=== PATIENT | female | born 1960 | race Caucasian/White ===

== ENCOUNTER → 2018-08-04 | Outpatient (CLI) | payer OTHER, MEDICAID ==
[~2018-08-04] MED LIST: AMIT25TA9 PO; ASPI-378 PO; ATO40T PO; CARV6.2551 PO; CLOP75TA41 PO; DOCU100T15 PO; FURO20TA3 PO; HYDR-3682 PO; LISI-275 PO; METR500T PO; ONDA-143 PO; PANT40TA2 PO; SPIR25TA8 PO
== END | disposition home or self-care (01) ==
LOC: Rad HDHVI 12:40
PROVIDERS: ATTEND Internal Medicine Cardiovascular Disease
DX: I35.1 Nonrheumatic aortic (valve) insufficiency (principal); I65.21 Occlusion and stenosis of right carotid artery; I20.9 Angina pectoris, unspecified; J44.9 Chronic obstructive pulmonary disease, unspecified
CPT/HCPCS: 93306; 93880

== ENCOUNTER → 2018-08-10 | Outpatient (CLI) | payer OTHER, MEDICAID ==
[~2018-08-10] VITALS: Ht 162.6 cm; Wt 83.0 kg
[~2018-08-10] MED LIST changes: +ADENOSINE 70 MG in GIVE UN-DILUTED 0 ML IV ONE; +ADENOSINE 90 MG/30 ML INJ IV ONE; +ALBUTEROL SULF 2.5 MG/0.5ML(0.5%) NEB SOLN ONE
--- NOTE | 2018-08-10 11:15 | NUR ---
Albuterol med/neb tx given for wheezing throughout. Pt tolerated well, 99% on 4L O2.
== END | disposition home or self-care (01) ==
LOC: Rad HDHVI 09:34
PROVIDERS: ATTEND Internal Medicine Cardiovascular Disease
DX: I20.9 Angina pectoris, unspecified (principal); J44.9 Chronic obstructive pulmonary disease, unspecified; I48.1 Persistent atrial fibrillation; I49.5 Sick sinus syndrome; I11.0 Hypertensive heart disease with heart failure; I50.9 Heart failure, unspecified
CPT/HCPCS: 78452; 93005; 96374; 96375; A9500; J0153; J7611

== ENCOUNTER → 2018-09-20 | Outpatient (CLI) | payer OTHER, MEDICAID ==
[~2018-09-20] MED LIST changes: -ADENOSINE 70 MG in GIVE UN-DILUTED 0 ML IV ONE; -ADENOSINE 90 MG/30 ML INJ IV ONE; -ALBUTEROL SULF 2.5 MG/0.5ML(0.5%) NEB SOLN ONE; +OXYC15TA77 PO
[2018-09-20 10:15] VITALS: BP 170/79
--- NOTE | 2018-09-20 10:15 | NUR ---
CHF-PRE OP PT ARRIVED IN OUTPATIENT CHF CLINIC, FOR PRE OP PROCEDURE LEFT HEART CATH PT HAS PORTABLE OXYGEN TANK 3 L NC PRE SET OF VITAL SIGNS TAKE, FOLLOWED BY ECG PATIENT HOME MEDICATIONS REVIEWED COPY OF ECG GIVEN TO PT PATIENT FAMILY MEMBER AT HER SIDE AT ALL TIMES.
--- NOTE | 2018-09-20 10:15 | NUR ---
Discharge Instructions See e-MAR for any mediations given with this visit. Patient education given on disease process. Patient verbalized understanding. Previous labs reviewed. Patient discharged in stable condition with after care instructions and follow up appointment. Addendum: 09/20/18 at 1047 by Yomaira Chairez RN DISCHARGE TIME AT 1033
[2018-09-20 10:33] VITALS: BP 143/78
[2018-09-20 12:15] LABS: Basophils # (auto) 0 uL; Basophils % (auto) 0.2 % (0.0-2.0); Eosinophils # (auto) 0.1 uL; Eosinophils % (auto) 0.8 % (0.0-7.0); Hematocrit 45.3 % (36.0-46.0); Hemoglobin 14.8 g/dL (12.2-16.2); Lymphocytes # (auto) 1.2 uL; Lymphocytes % (auto) 16.3 % (10.0-50.0); Mean Corpuscular Hemoglobin 29.3 pg (28.0-32.0); Mean Corpuscular Hgb Conc. 32.6 g/dL (32.0-36.0); Mean Corpuscular Volume 89.8 fL (80.0-100.0); Monocytes # (auto) 0.5 uL; Monocytes % (auto) 6.7 % (0.0-12.0); Neutrophils # (auto) 5.5 uL; Nucleated Red Blood Cells % 0.1 %; Platelet Count (auto) 165 10^3/uL (140-450); Red Blood Cells 5.04 10^6/uL (4.0-5.20); Red Cell Distribution Width 14.1 % (11.8-14.3); White Blood Cell 7.2 10^3/uL (4.4-10.8)
[2018-09-20 12:25] LABS: INR 0.91 (0.9-1.15); Partial Thromboplastin Time 27.4 sec (23.78-33.04); Prothrombin Time 9.8 sec (9.27-12.13)
[2018-09-20 12:28] LABS: BUN/Creatinine Ratio 17.1; Calcium 8.5 mg/dL (8.5-10.1); Potassium 3.9 mmol/L (3.5-5.1)
== END | disposition home or self-care (01) ==
LOC: Rad HDHVI 09:57
PROVIDERS: ATTEND Internal Medicine Cardiovascular Disease
DX: Z01.812 Encounter for preprocedural laboratory examination (principal); I70.0 Atherosclerosis of aorta; I11.0 Hypertensive heart disease with heart failure; I50.9 Heart failure, unspecified; D64.9 Anemia, unspecified; R79.1 Abnormal coagulation profile; I20.9 Angina pectoris, unspecified
CPT/HCPCS: 36415; 71046; 80048; 85025; 85610; 85730; G0463

== ENCOUNTER 2018-09-23 07:05 | Day surgery (SDC) | payer OTHER, MEDICAID ==
[~2018-09-23] VITALS: Ht 162.6 cm; Wt 86.2 kg
[~2018-09-23 07:05] MED LIST changes: -METR500T PO
[2018-09-23] MEDS ORDERED: IOHEXOL 350 MG/ML 100ML IJ ONE ×2 (07:29→08:41)
[2018-09-23] MEDS ORDERED: LIDOCAINE 2%HCL (LOCAL ANESTH.) INJ 20ML MDV ONE ×3 (07:29→09:16)
[2018-09-23] MEDS ORDERED: ANGIOMAX 250 MG VIAL IV ONE (08:37)
[2018-09-23] MEDS ORDERED: MIDAZOLAM HCL 1MG/1ML-2 ML VIAL ONE ×2 (08:38→09:21)
[2018-09-23] MEDS ORDERED: SODIUM CHL 0.9% 0 ML ONE (08:38)
[2018-09-23] MEDS ORDERED: fentaNYL CITRATE 100 MCG/2 ML VL ONE (08:38)
[2018-09-23] MEDS ORDERED: diphenhdrAMINE HCL 50 MG/1 ML VL ONE (09:14)
[2018-09-23] MEDS ORDERED: HYDROmorphone HCL 2 MG/ML VL ONE (09:21)
[2018-09-23] MEDS ORDERED: VERAPAMIL 2.5MG/ML INJ 2ML VIAL IV ONE (09:28)
[2018-09-23] MEDS ORDERED: HEPARIN SODIUM (PORCINE) 5000 UNITS/ML 1ML VIAL ONE (10:35)
== END 2018-09-23 12:45 | disposition home or self-care (01) ==
LOC: CATH 07:05
PROVIDERS: ATTEND Internal Medicine Cardiovascular Disease
DX: I25.10 Atherosclerotic heart disease of native coronary artery without angina pectoris (principal); J44.9 Chronic obstructive pulmonary disease, unspecified; I11.0 Hypertensive heart disease with heart failure; I50.9 Heart failure, unspecified; I62.9 Nontraumatic intracranial hemorrhage, unspecified; I73.89 Other specified peripheral vascular diseases; Z88.8 Allergy status to other drugs, medicaments and biological substances; Z88.1 Allergy status to other antibiotic agents; Z88.5 Allergy status to narcotic agent; Z96.89 Presence of other specified functional implants; Z79.82 Long term (current) use of aspirin; Z79.899 Other long term (current) drug therapy
CPT/HCPCS: 93454; A6257; C1769; C1887; C1894; J1170; J1200; J1644; J2250; J3010; J7030; Q9967; 99152; 99153

== ENCOUNTER 2019-01-26 18:22 | Inpatient (IN) | payer OTHER, MEDICAID ==
[~2019-01-26] VITALS: Ht 162.6 cm; Wt 80.1 kg
[~2019-01-26 18:22] MED LIST changes: +AMLO5TAB15 PO; -CARV6.2551 PO; +DICY10CA12 PO; -HYDR-3682 PO; +PITA4TAB PO
[2019-01-26 19:51] LABS: Albumin 3.7 g/dL (3.4-5.0); Anion Gap 6 (5-15); Blood Urea Nitrogen 16 mg/dL (7-18); Calcium 8.7 mg/dL (8.5-10.1); Carbon Dioxide 24 mmol/L (21-32); Chloride 108 mmol/L (98-107); Glucose 112 mg/dL (74-106); Magnesium 2.3 mg/dL (1.6-2.6); Potassium 3.4 mmol/L (3.5-5.1); Sodium 138 mmol/L (136-145)
[2019-01-26 19:53] LABS: Basophils # (auto) 0 uL; Basophils % (auto) 0.1 % (0.0-2.0); Eosinophils # (auto) 0.1 uL; Eosinophils % (auto) 1.1 % (0.0-7.0); Hematocrit 45.3 % (36.0-46.0); Hemoglobin 13.8 g/dL (12.2-16.2); Lymphocytes # (auto) 1.8 uL; Lymphocytes % (auto) 21.1 % (10.0-50.0); Mean Corpuscular Hemoglobin 28.6 pg (28.0-32.0); Mean Corpuscular Hgb Conc. 30.4 g/dL (32.0-36.0); Monocytes # (auto) 0.6 uL; Neutrophils % (auto) 70.7 % (37.0-80.0); Nucleated Red Blood Cells % 0.1 %; Platelet Count (auto) 167 10^3/uL (140-450); Red Blood Cells 4.82 10^6/uL (4.0-5.20); Red Cell Distribution Width 16.6 % (11.8-14.3); White Blood Cell 8.6 10^3/uL (4.4-10.8)
[2019-01-26 19:54] LABS: Alanine Aminotransferase 27 U/L (13-56); Alkaline Phosphatase 133 U/L (45-117); Aspartate Aminotransferase 24 U/L (15-37); BUN/Creatinine Ratio 17.2; Bilirubin, Total 0.7 mg/dL (0.2-1.0); GFR African American 80 mL/min; GFR Non-African American 66 mL/min
[2019-01-27] MEDS ORDERED: ONDANSETRON HCL 4 MG/2 ML VIAL IV ONE (03:30)
[2019-01-27] MEDS ORDERED: HYDROmorphone HCL 2 MG/ML VL IV ONE (03:30)
[2019-01-27] MEDS ORDERED: PROMETHAZINE HCL 25 MG/ML 1ML ONE (04:14)
[2019-01-27] MEDS ORDERED: PROMETHAZINE HCL 25 MG/ML 1ML IV ONE (04:30)
[2019-01-27] MEDS ORDERED: NITROGLYCERIN 0.4 MG SL TAB SL PRN (06:15)
[2019-01-27] MEDS ORDERED: MORPHINE SULF INJ 2 MG/ML SYRINGE 1ML IV PRN (06:15)
[2019-01-27] MEDS ORDERED: LABETALOL HCL 5 MG/ML ML 20ML VIAL IV PRN (06:15)
[2019-01-27] MEDS ORDERED: POTASSIUM CHLORIDE 20 MEQ, LIDOCAINE 1% (LOCAL ANESTH.) 2 ML in SODIUM CHL 0.9% 100 ML IV ONE (07:45)
[2019-01-27] MEDS ORDERED: FUROSEMIDE 20 MG/2 ML VIAL IV ONE (07:45)
[2019-01-27] MEDS: PROMETHAZINE HCL 25 MG/ML 1ML IV PRN ×4 (08:07→20:28)
[2019-01-27] MEDS: HYDROmorphone HCL 2 MG/ML VL IV PRN ×4 (08:07→20:28)
--- NOTE | 2019-01-27 10:10 | NUR ---
Telemetry admit from ER [facility] admitted to Telemetry unit after SBAR received. Patient oriented to Anna Koo, RN primary RN, unit, room, bed, and unit policies regarding patient care and visiting hours. Patient now on continuous telemetry monitoring, tele box # HC 31 and telemetry reading on arrival to unit is SR 82. Patient placed on bedside oxygen, weighed by bedscale and encouraged to call if they need something. All questions and concerns addressed, patient verbalized understanding. Note:
--- NOTE | 2019-01-27 10:20 | NUR ---
Patient has a sling to her left arm. She states she fell one week ago and damaged her shoulder.
--- NOTE | 2019-01-27 10:25 | NUR ---
Patient states she is too nauseated to take any medications at this time. Will continue to monitor.
[2019-01-27 10:28] VITALS: BP 137/77
[2019-01-27] MEDS: LISINOPRIL 5 MG TAB PO SCH (10:30)
[2019-01-27] MEDS: amLODIPine BESYLATE 5 MG TAB PO SCH (10:30)
[2019-01-27] MEDS: PANTOPRAZOLE 40 MG TAB PO SCH (10:30)
[2019-01-27] MEDS: CLOPIDOGREL BISULFATE 75 MG TAB PO SCH (10:30)
[2019-01-27] MEDS: SPIRONOLACTONE 25 MG TAB PO SCH (10:30)
[2019-01-27] MEDS: ASPirin-EC 81 mg tab PO SCH (10:30)
[2019-01-27] MEDS: METOPROLOL TARTRATE 50 MG TAB PO SCH ×2 (10:30→22:00)
[2019-01-27 10:33] LABS: Urine Bacteria FEW /hpf (None Seen); Urine Blood 1+ /uL (Negative); Urine Mucus FEW (None Seen); Urine WBC 3 /hpf (0 - 5)
[2019-01-27 13:00] VITALS: BP 127/83
[2019-01-27 17:00] VITALS: BP 130/81
[2019-01-27] MEDS: AMITRIPTYLINE HCL 25 MG TAB PO SCH (18:00)
--- NOTE | 2019-01-27 18:49 | NUR ---
Received call from Dr. Rivera stating she is looking for the CT abdomen results. This RN informed her that she saw the patient this AM and said she would review what tests the patient has had and put in new orders. CT abdomen ordered STAT and CT informed. STAT orders put in for urine and blood cultures.
[2019-01-27] MEDS ORDERED: ONDANSETRON HCL 4 MG/2 ML VIAL IV PRN (19:00)
--- NOTE | 2019-01-27 19:24 | NUR ---
CT abdomen completed, patient back to room.
--- NOTE | 2019-01-27 19:30 | NUR ---
Opening Shift Note Assumed care of patient, awake and alert x4. Family members noted at the bedside. Patient complains of sharp pain to lower abdomen (pain scale 9/10), will medicate patient as MD ordered. No S/S of distress/SOB noted. Instructed on plan of care and to call for assistance as needed, patient verbalized understanding. Bed is locked in lowest position, side rails x 2 are up, call light is within reach, and bed alarm is on.
[2019-01-27 19:50] LABS: Basophils # (auto) 0 uL; Basophils % (auto) 0.3 % (0.0-2.0); Eosinophils # (auto) 0.1 uL; Eosinophils % (auto) 1.8 % (0.0-7.0); Hematocrit 38.8 % (36.0-46.0); Hemoglobin 12.4 g/dL (12.2-16.2); Lymphocytes # (auto) 1.4 uL; Lymphocytes % (auto) 25.2 % (10.0-50.0); Mean Corpuscular Hemoglobin 28.4 pg (28.0-32.0); Mean Corpuscular Hgb Conc. 31.8 g/dL (32.0-36.0); Mean Corpuscular Volume 89.2 fL (80.0-100.0); Monocytes # (auto) 0.4 uL; Monocytes % (auto) 7.2 % (0.0-12.0); Neutrophils # (auto) 3.7 uL; Neutrophils % (auto) 65.5 % (37.0-80.0); Platelet Count (auto) 139 10^3/uL (140-450); Red Blood Cells 4.35 10^6/uL (4.0-5.20); Red Cell Distribution Width 16.3 % (11.8-14.3); White Blood Cell 5.6 10^3/uL (4.4-10.8)
[2019-01-27 20:12] LABS: Albumin 3.1 g/dL (3.4-5.0); Calcium 8.1 mg/dL (8.5-10.1); Potassium 3.4 mmol/L (3.5-5.1)
[2019-01-27 20:16] LABS: Bilirubin, Total 0.7 mg/dL (0.2-1.0); Total Protein 7.6 g/dL (6.4-8.2)
[2019-01-27 21:42] VITALS: BP 142/89
[2019-01-27] MEDS ORDERED: D5W/SOD CHL 0.9%/KCL 40MEQ 1,000 ML IV SCH (22:00)
[2019-01-27] MEDS: ATORVASTATIN 20 MG TAB PO SCH (22:00)
[2019-01-27] MEDS: POTASSIUM CHLORIDE 40 MEQ in D5W 5% 1,000 ML IV SCH (23:25)
[2019-01-28] MEDS: HYDROmorphone HCL 2 MG/ML VL IV PRN ×6 (01:49→22:40)
[2019-01-28] MEDS: PROMETHAZINE HCL 25 MG/ML 1ML IV PRN ×5 (01:49→21:50)
--- NOTE | 2019-01-28 01:57 | NUR ---
HOSPITALIST PAGED RE: CT ABDOMEN RESULTS Hospitalist paged regarding CT abdomen results. Awaiting call back.
--- NOTE | 2019-01-28 02:41 | NUR ---
PATIENT COMPLAINING OF DIFFICULTY URINATING Patient states she has an urge to urinate but is unable to urinate. Patient found to have distended bladder upon palpation. Bladder scan showed reading of 125ml of urine retention. Patient is also complaining of lower abdominal pain. Will inform Hospitalist.
--- NOTE | 2019-01-28 04:07 | NUR ---
HOSPITALIST PAGED RE: ABDOMEN CT RESULTS AND URINE OUTPUT Hospitalist paged regarding abdomen CT results and urine output. Awaiting call back.
[2019-01-28 04:59] VITALS: BP 135/73
--- NOTE | 2019-01-28 05:11 | NUR ---
HOSPITALIST RETURNED CALL Made Cynthia Ballesteros aware of patients CT abdomen results. Cynthia Ballesteros was also made aware of patient complaining of having urge to void but unable to urinate, bladder feeling distended upon palpitation, and bladder scan showing reading of 125ml of urine retention. Orders for Negrete catheter received. Order read back and verified. Will carry out order as received.
--- NOTE | 2019-01-28 06:00 | NUR ---
Hernandez catheter insertion Patient assessed and determined to be in need of hernandez catheter. Order obtained from Cynthia Ballesteros for hernandez catheter insertion. Patient educated on catheter and reason for insertion. All questions answered. Hernandez catheter 16 guage [place] inserted with clean sterile technique. Patient tolerated well.
--- NOTE | 2019-01-28 06:30 | NUR ---
URINE COLLECTED URINE COLLECTED AND SENT TO LAB.
--- NOTE | 2019-01-28 06:50 | NUR ---
PATIENT REFUSING IV INSERTION Patient called stating that her IV site was hurting/burning. Redness was noted around IV site. Patient refusing to have IV started. Patient states she always gets PICC lines due to her being a hard stick.
--- NOTE | 2019-01-28 08:00 | NUR ---
Opening Shift Note Assumed care of patient, resting with eyes closed. No S/S of distress/SOB. Instructed on POC and to call for assist PRN, will continue to monitor for changes Q1hr and PRN.
[2019-01-28 08:02] LABS: Basophils # (auto) 0 uL; Basophils % (auto) 0.6 % (0.0-2.0); Eosinophils # (auto) 0.1 uL; Eosinophils % (auto) 2.5 % (0.0-7.0); Hematocrit 38.6 % (36.0-46.0); Hemoglobin 12.3 g/dL (12.2-16.2); Lymphocytes # (auto) 1.2 uL; Lymphocytes % (auto) 26.1 % (10.0-50.0); Mean Corpuscular Hemoglobin 28.3 pg (28.0-32.0); Mean Corpuscular Hgb Conc. 31.9 g/dL (32.0-36.0); Mean Corpuscular Volume 88.8 fL (80.0-100.0); Monocytes # (auto) 0.4 uL; Monocytes % (auto) 7.8 % (0.0-12.0); Neutrophils # (auto) 2.9 uL; Nucleated Red Blood Cells % 0.1 %; Platelet Count (auto) 124 10^3/uL (140-450); Red Blood Cells 4.35 10^6/uL (4.0-5.20); White Blood Cell 4.7 10^3/uL (4.4-10.8)
[2019-01-28 08:20] LABS: Calcium 8.4 mg/dL (8.5-10.1); Potassium 3.4 mmol/L (3.5-5.1)
[2019-01-28 09:09] VITALS: BP 119/70
[2019-01-28] MEDS: ASPirin-EC 81 mg tab PO SCH ×2 (10:00→10:33)
[2019-01-28] MEDS: SPIRONOLACTONE 25 MG TAB PO SCH ×2 (10:00→10:33)
[2019-01-28] MEDS: amLODIPine BESYLATE 5 MG TAB PO SCH ×2 (10:00→10:34)
[2019-01-28] MEDS: LISINOPRIL 5 MG TAB PO SCH ×2 (10:00→10:34)
[2019-01-28] MEDS: CLOPIDOGREL BISULFATE 75 MG TAB PO SCH ×2 (10:00→10:34)
[2019-01-28] MEDS: METOPROLOL TARTRATE 50 MG TAB PO SCH ×2 (10:33→22:00)
[2019-01-28] MEDS: PANTOPRAZOLE 40 MG TAB PO SCH ×2 (10:34→22:00)
--- NOTE | 2019-01-28 11:00 | NUR ---
REFUSED ORAL MEDICATIONS PATIENT REFUSED AM MEDICATIONS DUE TO FEELING NAUCEOUS. PRN MEDICATION WAS GIVEN IV. WENT BACK TO SEE IF PATIENT WOULD TAKE THE MEDICATIONS AND SHE AGAIN REFUSED ALL PO MEDICATIONS.
--- NOTE | 2019-01-28 11:21 | NUR ---
Midline Placement: Patient educated on need for midline placement. All risks and benefits explained and all questions and concerns addresses prior to procedure. 3Fr 20cm midline inserted via right brachial vein using Ultrasound. Sterile technique utilized. Blood return obtained from the single lumen and flushed easily with NS using proper technique. Midline secured with saline lock; biodisc and occlusive dressing applied. Primary RN notified. Midline lot #[id number].
[2019-01-28] MEDS: POTASSIUM CHLORIDE 40 MEQ in D5W 5% 1,000 ML IV SCH (11:54)
[2019-01-28 13:00] VITALS: BP 115/68
[2019-01-28] MEDS: CEFEPIME 2 GM in SODIUM CHL 0.9% 50 ML IV SCH ×2 (13:27→21:49)
--- NOTE | 2019-01-28 15:15 | NUR ---
EMESIS PATIENT VOMITING A GREENISH FROTHY FLUID. SHE REMAINS NPO. SHE IS COMPLAINING OF ABDOMINAL PAIN AND NAUSEA. SHE WAS GIVEN DILAUDID AND PHENERGAN ORDERED. IS AWARE.
[2019-01-28 17:00] VITALS: BP 121/78
[2019-01-28] MEDS: AMITRIPTYLINE HCL 25 MG TAB PO SCH (18:00)
--- NOTE | 2019-01-28 19:30 | NUR ---
Opening Shift Note Assumed care of patient, patient is laying in bed with eyes closed, symmetrical chest rise and fall noted. No S/S of distress/SOB noted. Bed is locked in lowest position, side rails x 2 are up, call light is within reach, and bed alarm is on.
[2019-01-28 21:38] VITALS: BP 139/81
[2019-01-28] MEDS: ATORVASTATIN 20 MG TAB PO SCH (22:00)
--- NOTE | 2019-01-28 23:40 | NUR ---
SPOKE WITH DR. BEAUCHAMP RE: PAIN/NAUSEA MEDICATIONS Informed Dr. Romero that patient is still complaining of sharp lower abdominal pain (pain scale 10/10) and is still dry heaving. Dr. Romero was made aware that patient states the pain/nausea medications are not working. Per Dr. Romero he will take a look at the medical record and adjust patients pain/nausea medications.
[2019-01-28] MEDS ORDERED: METOCLOPRAMIDE HCL 5MG/ml INJ 2ml VIAL IV PRN (23:45)
--- NOTE | 2019-01-28 23:54 | NUR ---
DR. BEAUCHAMP PAGED RE: NAUSEA MEDICATION Dr. Beauchamp paged regarding nausea medication. Awaiting call back.
--- NOTE | 2019-01-28 23:56 | NUR ---
DR. BEAUCHAMP RETURNED CALL Informed Dr. Beauchamp that patient states she cannot take Reglan for nausea because Reglan makes her anxious. Orders to discontinue Reglan and resume promethazine 12.5mg every four hours as needed for nausea received. Order read back and verified. Will carry out orders as received.
[2019-01-29] MEDS: PROMETHAZINE HCL 25 MG/ML 1ML IV PRN ×6 (01:14→22:40)
[2019-01-29] MEDS: HYDROmorphone HCL 2 MG/ML VL IV PRN ×6 (01:15→22:41)
[2019-01-29 01:20] VITALS: BP 155/81
--- NOTE | 2019-01-29 01:20 | NUR ---
EMESIS Patient vomited approximately 100ml of green bile. Patient has been medicated for nausea.
[2019-01-29] MEDS: PANTOPRAZOLE 40 MG TAB PO SCH ×3 (01:23→21:24)
--- NOTE | 2019-01-29 04:20 | NUR ---
SPOKE WITH DR. HERNANDEZ RE: HEART BURN Informed Dr. Hernandez that patient is complaining of heart burn. Orders received for Pepcid 20mg IV BID. Order repeated and verified. Will carry out order as received.
[2019-01-29 05:19] VITALS: BP 132/78
[2019-01-29 06:05] LABS: Basophils # (auto) 0 uL; Basophils % (auto) 0.5 % (0.0-2.0); Eosinophils # (auto) 0.1 uL; Eosinophils % (auto) 1.8 % (0.0-7.0); Hematocrit 38.3 % (36.0-46.0); Hemoglobin 12.5 g/dL (12.2-16.2); Lymphocytes # (auto) 1.3 uL; Lymphocytes % (auto) 26.2 % (10.0-50.0); Mean Corpuscular Hemoglobin 28.5 pg (28.0-32.0); Mean Corpuscular Hgb Conc. 32.7 g/dL (32.0-36.0); Mean Corpuscular Volume 87.2 fL (80.0-100.0); Monocytes # (auto) 0.4 uL; Monocytes % (auto) 6.8 % (0.0-12.0); Neutrophils # (auto) 3.3 uL; Neutrophils % (auto) 64.7 % (37.0-80.0); Nucleated Red Blood Cells % 0.5 %; Platelet Count (auto) 144 10^3/uL (140-450); Red Blood Cells 4.39 10^6/uL (4.0-5.20); Red Cell Distribution Width 15.9 % (11.8-14.3); White Blood Cell 5.1 10^3/uL (4.4-10.8)
[2019-01-29 06:28] LABS: BUN/Creatinine Ratio 21.1; Calcium 8.4 mg/dL (8.5-10.1); Potassium 3.6 mmol/L (3.5-5.1)
[2019-01-29] MEDS: POTASSIUM CHLORIDE 40 MEQ in D5W 5% 1,000 ML IV SCH ×2 (07:03→15:06)
--- NOTE | 2019-01-29 07:26 | NUR ---
CLOSING SHIFT NOTE Endorsed patient care to Divine NIÑO.
--- NOTE | 2019-01-29 08:00 | NUR ---
Opening Shift Note Assumed care of patient, resting with eyes closed, wakes easily to sound/touch. No S/S of distress/SOB. Continues to have abdominal pain and reported episodes of vomiting during the night. Instructed on POC and to call for assist PRN, will continue to monitor for changes Q1hr and PRN.
[2019-01-29 08:49] VITALS: BP 123/78
[2019-01-29] MEDS: CEFEPIME 2 GM in SODIUM CHL 0.9% 50 ML IV SCH ×2 (09:43→21:26)
[2019-01-29] MEDS: CLOPIDOGREL BISULFATE 75 MG TAB PO SCH (10:00)
[2019-01-29] MEDS: SPIRONOLACTONE 25 MG TAB PO SCH (10:00)
[2019-01-29] MEDS: METOPROLOL TARTRATE 50 MG TAB PO SCH ×2 (10:00→21:25)
[2019-01-29] MEDS: amLODIPine BESYLATE 5 MG TAB PO SCH (10:00)
[2019-01-29] MEDS: LISINOPRIL 5 MG TAB PO SCH (10:00)
[2019-01-29] MEDS: ASPirin-EC 81 mg tab PO SCH (10:00)
[2019-01-29] MEDS: FAMOTIDINE (10MG/ML) 2ML VL IV SCH ×2 (10:10→21:34)
[2019-01-29] MEDS: SUCRALFATE 1 GM/10 ML ORAL SUSP PO SCH ×4 (12:20→21:24)
[2019-01-29 13:00] VITALS: BP 107/71
[2019-01-29] MEDS ORDERED: GASTROGRAFIN 30 ML SOL ONE (13:02)
--- NOTE | 2019-01-29 15:00 | NUR ---
DRINKING CONTRAST PATIENT SIPPING ON ORAL CONTRAST TO PREPARE FOR ABD/PELVIS CT. SHE STATED THAT THE MEDICATION THAT WAS GIVEN EARLIER (SUCRALFATE AND PROTONIX) HELPED HER TO FEEL A LITTLE BETTER AND THE PAIN MEDICATION "TAKES THE EDGE OFF". SHE REPORTED TO THE DOCTOR THAT SHE PREVIOUSLY HAD PAIN IN HER LOWER RIGHT GROIN/ABD AREA, WHERE THEY FOUND BLOOD CLOTS, BUT THAT THIS PAIN WAS WORSE. PATIENT HAD AN EPISODE OF HEAVING EARLIER. MD ORDERED AN NG TUBE TO BE PLACED. WILL PLACE THIS AFTER CT IS DONE DUE TO PATIENT DRINKING ORAL CONTRAST AT THIS TIME.
[2019-01-29] MEDS ORDERED: IOHEXOL 300 MG/ML 100ML BOTTLE IJ ONE (15:41)
--- NOTE | 2019-01-29 16:31 | NUR ---
REFUSING NG TUBE PATIENT RETURNED FROM CT AND CXR. SHE IS REFUSING THE NG TUBE. THIS NURSE EXPLAINED TO HER THAT IT WOULD HELP WITH THE GAS, INDIGESTION, AND VOMITING BILE. SHE STATED THAT SHE HAS NOT BEEN HEAVING SINCE SHE RECEIVED THE SUCRALFATE AND PROTONIX AND THAT SHE DID NOT WANT THE NG TUBE. SHE STATED THAT IT MIGHT MAKE HER GAG AND START VOMITING AGAIN. LEFT SUPPLIES IN PATIENT'S ROOM IN CASE SHE CHANGES HER MIND. SHE SAID IT SHE STARTED VOMITING AGAIN SHE WOULD NOTIFY THE NURSE.
[2019-01-29 17:00] VITALS: BP 130/71
[2019-01-29] MEDS: AMITRIPTYLINE HCL 25 MG TAB PO SCH (18:00)
[2019-01-29] MEDS: ATORVASTATIN 20 MG TAB PO SCH (21:25)
[2019-01-29 21:49] VITALS: BP 127/71
[2019-01-29] MEDS ORDERED: FUROSEMIDE 20 MG/2 ML VIAL IV ONE (23:30)
[2019-01-30] MEDS: PROMETHAZINE HCL 25 MG/ML 1ML IV PRN ×5 (02:48→20:25)
[2019-01-30] MEDS: HYDROmorphone HCL 2 MG/ML VL IV PRN ×5 (02:49→20:26)
--- NOTE | 2019-01-30 03:35 | NUR ---
POSITIVE BLOOD CULTURE CALL FORM LAB. GRAM POSITIVE COCCI IN CLUSTERS.
[2019-01-30 05:00] VITALS: BP 121/77
--- NOTE | 2019-01-30 05:01 | NUR ---
HOSPITALIST PAGED RE: POSITIVE BLOOD CULTURE
--- NOTE | 2019-01-30 06:27 | NUR ---
HOSPITALIST RETURNS CALL HOSPITALIST ZANDER RETURNS CALL. INFORMED HER OF POSITIVE BLOOD CULTURE, NO NEW ORDERS RECEIVED.
[2019-01-30] MEDS: SUCRALFATE 1 GM/10 ML ORAL SUSP PO SCH ×4 (06:56→21:30)
[2019-01-30] MEDS: POTASSIUM CHLORIDE 40 MEQ in D5W 5% 1,000 ML IV SCH (06:57)
[2019-01-30 06:58] LABS: Basophils # (auto) 0 uL; Basophils % (auto) 0.4 % (0.0-2.0); Eosinophils # (auto) 0.2 uL; Hematocrit 41.9 % (36.0-46.0); Lymphocytes # (auto) 1.3 uL; Lymphocytes % (auto) 24.4 % (10.0-50.0); Mean Corpuscular Hemoglobin 29.2 pg (28.0-32.0); Mean Corpuscular Hgb Conc. 33.3 g/dL (32.0-36.0); Mean Corpuscular Volume 87.6 fL (80.0-100.0); Monocytes # (auto) 0.4 uL; Monocytes % (auto) 7.5 % (0.0-12.0); Neutrophils # (auto) 3.4 uL; Neutrophils % (auto) 64.7 % (37.0-80.0); Nucleated Red Blood Cells % 0.2 %; Platelet Count (auto) 131 10^3/uL (140-450); Red Blood Cells 4.79 10^6/uL (4.0-5.20); Red Cell Distribution Width 15.8 % (11.8-14.3); White Blood Cell 5.2 10^3/uL (4.4-10.8)
[2019-01-30 07:20] LABS: Calcium 8.7 mg/dL (8.5-10.1)
[2019-01-30 09:00] VITALS: BP 108/78
[2019-01-30] MEDS: METOPROLOL TARTRATE 50 MG TAB PO SCH ×2 (10:00→21:30)
[2019-01-30] MEDS: amLODIPine BESYLATE 5 MG TAB PO SCH (10:00)
[2019-01-30] MEDS: SPIRONOLACTONE 25 MG TAB PO SCH (10:00)
[2019-01-30] MEDS: LISINOPRIL 5 MG TAB PO SCH (10:00)
[2019-01-30] MEDS: FAMOTIDINE (10MG/ML) 2ML VL IV SCH ×2 (10:16→21:30)
[2019-01-30] MEDS: CEFEPIME 2 GM in SODIUM CHL 0.9% 50 ML IV SCH ×2 (10:16→21:30)
[2019-01-30] MEDS: PANTOPRAZOLE 40 MG TAB PO SCH ×2 (10:17→21:30)
[2019-01-30] MEDS ORDERED: KETOROLAC TROMETH 15 mg/ml 1ML VL IV SCH (11:15)
[2019-01-30] MEDS ORDERED: FUROSEMIDE 40 MG/4 ML VIAL IV ONE (11:30)
--- NOTE | 2019-01-30 11:45 | NUR ---
SALEEM REMOVED SALEEM CATHETER WAS REMOVED PER MD ORDER. PATIENT WAS INSTRUCTED TO CALL WHEN SHE NEEDS TO URINATE. DIET WAS CHANGED TO CLEAR LIQUIDS. WILL MONITOR PATIENT.
[2019-01-30 13:00] VITALS: BP 152/73
--- NOTE | 2019-01-30 14:27 | NUR ---
[facility] ALLERGY ORDER WAS WRITTEN FOR THIS MEDICATION. PHARMACY PUT MEDICATION ON HOLD DUE TO REPORT OF PATIENT BEING ALLERGIC. THIS NURSE TALKED TO THE PATIENT AND SHE VERIFIED THAT SHE IS ALLERGIC TO IT. NOTIFIED PHARMACY. CALLED AND LEFT A MESSAGE FOR DR. JUAREZ.
--- NOTE | 2019-01-30 14:29 | NUR ---
NO PROBLEMS URINATING PATIENT IS NOT HAVING ANY PROBLEMS URINATING SINCE SALEEM CATHETER WAS REMOVED.
[2019-01-30 17:00] VITALS: BP 142/94
[2019-01-30] MEDS: AMITRIPTYLINE HCL 25 MG TAB PO SCH (17:08)
[2019-01-30] MEDS: ATORVASTATIN 20 MG TAB PO SCH (21:30)
[2019-01-30 21:59] VITALS: BP 105/76
--- NOTE | 2019-01-31 00:20 | NUR ---
AMBULATION PATIENT AMBULATED TO BATHROOM WITH STANDBY ASSIST FOR BOWEL MOVEMENT. PATIENT REPORTING DIARRHEA. PATIENT RETURNED TO BED WITHOUT INCIDENT. BED ALARM PLACED ON, CALL LIGHT WITHIN REACH.
[2019-01-31] MEDS: PROMETHAZINE HCL 25 MG/ML 1ML IV PRN ×6 (00:25→20:51)
[2019-01-31] MEDS: HYDROmorphone HCL 2 MG/ML VL IV PRN ×6 (00:26→20:52)
[2019-01-31 05:00] VITALS: BP 114/75
[2019-01-31] MEDS: SUCRALFATE 1 GM/10 ML ORAL SUSP PO SCH ×4 (06:18→21:38)
[2019-01-31 08:00] VITALS: BP 106/69
--- NOTE | 2019-01-31 08:00 | NUR ---
Opening Shift Note Assumed care of patient. Patient is sleeping with no S/S of distress or pain. Patient has no signs of SOB, noted chest rise and fall bilaterally. Call light within reach and bed in low position.
[2019-01-31 09:22] VITALS: BP 106/66
[2019-01-31] MEDS ORDERED: ENOXAPARIN SOD 40 MG/0.4 ML SYRINGE SC SCH (10:00)
[2019-01-31] MEDS: amLODIPine BESYLATE 5 MG TAB PO SCH (10:00)
[2019-01-31] MEDS: LISINOPRIL 5 MG TAB PO SCH (10:00)
[2019-01-31] MEDS: METOPROLOL TARTRATE 50 MG TAB PO SCH ×2 (10:00→21:39)
[2019-01-31] MEDS: SPIRONOLACTONE 25 MG TAB PO SCH (10:00)
[2019-01-31] MEDS: PANTOPRAZOLE 40 MG TAB PO SCH ×2 (11:14→21:38)
[2019-01-31] MEDS: FAMOTIDINE (10MG/ML) 2ML VL IV SCH ×2 (11:14→21:38)
[2019-01-31] MEDS: CEFEPIME 2 GM in SODIUM CHL 0.9% 50 ML IV SCH ×2 (11:41→21:39)
--- NOTE | 2019-01-31 12:26 | NUR ---
Nutrition Assessment Notes please see attached link for complete assessment Est. Needs BW 76 [id number] kcal (23-25 kcal/kgBW), 76-83 gms pro (1.0-1.1 gms/kgBW). Will continue to monitor pertinent labs and reassess nutrient need prn Addendum: 01/31/19 at [address] Amended: Links added.
[2019-01-31 14:11] VITALS: BP 110/69
[2019-01-31 16:33] VITALS: BP 117/75
[2019-01-31] MEDS: AMITRIPTYLINE HCL 25 MG TAB PO SCH (18:00)
[2019-01-31] MEDS: COLCHICINE 0.6 MG CAP PO SCH (21:38)
[2019-01-31] MEDS: ATORVASTATIN 20 MG TAB PO SCH (21:39)
[2019-01-31 22:00] VITALS: BP 139/87
[2019-02-01] MEDS: HYDROmorphone HCL 2 MG/ML VL IV PRN ×6 (00:59→22:42)
[2019-02-01] MEDS: PROMETHAZINE HCL 25 MG/ML 1ML IV PRN ×6 (00:59→22:42)
[2019-02-01 05:00] VITALS: BP 134/76
[2019-02-01] MEDS: SUCRALFATE 1 GM/10 ML ORAL SUSP PO SCH ×4 (06:31→22:41)
--- NOTE | 2019-02-01 07:20 | NUR ---
OPENING NOTE ASSUMED CARE OF PT. ALERT AND ORIENTED. NO SIGNS OF SOB/DISTRESS NOTED. DENIES ANY PAIN. BED SET TO LOWEST POSITION/LOCKED. BEDSIDE RAILS UP X2. CALL LIGHT WITHIN REACH. INSTRUCTED PT TO CALL FOR ASSISTANCE. DISCUSSED POC. WILL CONTINUE TO MONITOR Q1HR AND PRN.
[2019-02-01 09:00] VITALS: BP 147/81
[2019-02-01] MEDS: FAMOTIDINE (10MG/ML) 2ML VL IV SCH ×2 (09:24→22:42)
[2019-02-01] MEDS: PANTOPRAZOLE 40 MG TAB PO SCH ×2 (09:24→22:41)
[2019-02-01] MEDS: SPIRONOLACTONE 25 MG TAB PO SCH (09:25)
[2019-02-01] MEDS: CEFEPIME 2 GM in SODIUM CHL 0.9% 50 ML IV SCH ×2 (09:25→22:41)
[2019-02-01] MEDS: amLODIPine BESYLATE 5 MG TAB PO SCH (09:26)
[2019-02-01] MEDS: COLCHICINE 0.6 MG CAP PO SCH ×2 (09:26→22:41)
[2019-02-01] MEDS: METOPROLOL TARTRATE 50 MG TAB PO SCH ×2 (09:26→22:47)
[2019-02-01] MEDS: LISINOPRIL 5 MG TAB PO SCH (09:26)
[2019-02-01 13:00] VITALS: BP 120/76
[2019-02-01 17:00] VITALS: BP 127/78
[2019-02-01] MEDS: AMITRIPTYLINE HCL 25 MG TAB PO SCH (17:30)
[2019-02-01 21:37] VITALS: BP 105/69
[2019-02-01] MEDS: ATORVASTATIN 20 MG TAB PO SCH (22:47)
[2019-02-02] MEDS: HYDROmorphone HCL 2 MG/ML VL IV PRN ×5 (03:54→21:21)
[2019-02-02] MEDS: PROMETHAZINE HCL 25 MG/ML 1ML IV PRN ×5 (03:54→21:21)
[2019-02-02 05:35] VITALS: BP 106/61
[2019-02-02] MEDS: SUCRALFATE 1 GM/10 ML ORAL SUSP PO SCH ×4 (06:28→21:20)
--- NOTE | 2019-02-02 06:30 | NUR ---
PATIENT REPORTING TENDERNESS AT RIGHT UPPER ARM AROUND MID-LINE SITE. SITE IS PINK AND WARM TO TOUCH. RIGHT RADIAL PULSE PALPATED AND NORMAL. MOVEMENT AND SENSATION INTACT. DR. JUAREZ NOTIFIED.
--- NOTE | 2019-02-02 07:20 | NUR ---
OPENING NOTE ASSUMED CARE OF PT. ALERT AND ORIENTED. NO SIGNS OF SOB/DISTRESS NOTED. BED SET TO LOWEST POSITION/LOCKED. BEDSIDE RAILS UP X2. CALL LIGHT WITHIN REACH. INSTRUCTED PT TO CALL FOR ASSISTANCE. DISCUSSED POC. WILL CONTINUE TO MONITOR Q1HR AND PRN.
[2019-02-02 09:00] VITALS: BP 105/66
[2019-02-02] MEDS: amLODIPine BESYLATE 5 MG TAB PO SCH (10:00)
[2019-02-02] MEDS: LISINOPRIL 5 MG TAB PO SCH (10:00)
[2019-02-02] MEDS: COLCHICINE 0.6 MG CAP PO SCH ×2 (10:00→21:20)
[2019-02-02] MEDS: METOPROLOL TARTRATE 50 MG TAB PO SCH ×2 (10:00→22:00)
[2019-02-02] MEDS: SPIRONOLACTONE 25 MG TAB PO SCH (10:00)
[2019-02-02] MEDS: FAMOTIDINE (10MG/ML) 2ML VL IV SCH ×2 (10:22→21:21)
[2019-02-02] MEDS: CEFEPIME 2 GM in SODIUM CHL 0.9% 50 ML IV SCH ×2 (10:22→21:21)
[2019-02-02] MEDS: PANTOPRAZOLE 40 MG TAB PO SCH ×2 (10:23→21:21)
[2019-02-02 12:32] VITALS: BP 111/66
[2019-02-02 17:00] VITALS: BP 105/70
[2019-02-02] MEDS: AMITRIPTYLINE HCL 25 MG TAB PO SCH (17:34)
--- NOTE | 2019-02-02 19:40 | NUR ---
Opening Shift Note Assumed care of patient, awake and alert. No S/S of distress/SOB or pain. Bed locked in lowest position, side rails upx2, call light within reach. Instructed on POC and to call for assist PRN, will continue to monitor for changes Q1hr and PRN.
[2019-02-02] MEDS: ATORVASTATIN 20 MG TAB PO SCH (21:30)
[2019-02-02 21:36] VITALS: BP 120/80
[2019-02-03] MEDS: HYDROmorphone HCL 2 MG/ML VL IV PRN ×6 (01:22→23:54)
[2019-02-03] MEDS: PROMETHAZINE HCL 25 MG/ML 1ML IV PRN ×6 (01:22→23:54)
[2019-02-03 05:41] VITALS: BP 105/68
[2019-02-03] MEDS: SUCRALFATE 1 GM/10 ML ORAL SUSP PO SCH ×4 (06:26→21:37)
--- NOTE | 2019-02-03 07:15 | NUR ---
Opening Shift Note Assumed care of patient, asleep, arouses to name and alert. No S/S of distress/SOB. Patient rates pain at a 6/10 and is willing to wait until pain medications are due. Bed in lowest and locked position with side rails up x2 and call light with in reach. Instructed on POC and to call for assist PRN, will continue to monitor for changes Q1hr and PRN.
[2019-02-03 09:00] VITALS: BP 108/70
[2019-02-03] MEDS: LISINOPRIL 5 MG TAB PO SCH (10:00)
[2019-02-03] MEDS: SPIRONOLACTONE 25 MG TAB PO SCH (10:00)
[2019-02-03] MEDS: METOPROLOL TARTRATE 50 MG TAB PO SCH ×2 (10:00→22:00)
[2019-02-03] MEDS: amLODIPine BESYLATE 5 MG TAB PO SCH (10:00)
[2019-02-03] MEDS: FAMOTIDINE (10MG/ML) 2ML VL IV SCH ×2 (10:39→21:38)
[2019-02-03] MEDS: CEFEPIME 2 GM in SODIUM CHL 0.9% 50 ML IV SCH ×2 (10:39→21:37)
[2019-02-03] MEDS: COLCHICINE 0.6 MG CAP PO SCH ×2 (10:40→21:37)
[2019-02-03] MEDS: PANTOPRAZOLE 40 MG TAB PO SCH ×2 (10:42→21:37)
--- NOTE | 2019-02-03 12:17 | NUR ---
Nutrition Follow-up Notes Wt.: 78.2 kg Pt`s sleeping with no family by beside. per records pt with hematoma and groin pain. pt with no distress noted per nursing. pt is currenly on clear liq diet with adequate PO of 75% x 4 per RN dOc. pt with N/V per RN Est. Needs BW 76 [id number] kcal (23-25 kcal/kgBW), 76-83 gms pro (1.0-1.1 gms/kgBW). Will continue to monitor pertinent labs and reassess nutrient need prn Labs: no new labs today 01/30: GLU 110 H, rest lab wnl Skin: Galen scale 21 low risk no wounds per RN doc GI: Pt had 1 BM 01/31 per documentation spec. PES: Altered nutrition related lab values r/t acute/chronic medical condition aeb hyperglycemia Will continue to monitor PO intake, skin status, pertinent labs and weight trend. F/u in 2-3 days. Rec.: 1.) Advance diet as medically feasible. 2) continue current plan of care
[2019-02-03 13:00] VITALS: BP 123/69
[2019-02-03 16:08] VITALS: BP 123/69
[2019-02-03 17:00] VITALS: BP 150/85
[2019-02-03] MEDS: AMITRIPTYLINE HCL 25 MG TAB PO SCH (17:29)
--- NOTE | 2019-02-03 19:30 | NUR ---
Opening Shift Note Assumed care of patient, awake and alert. No S/S of distress/SOB but c/o pain /, will medicate per md order. at bedside. Bed locked in lowest position, side rails upx2, call light within reach. Instructed on POC and to call for assist PRN, will continue to monitor for changes Q1hr and PRN.
[2019-02-03 21:30] VITALS: BP 129/90
[2019-02-03] MEDS: ATORVASTATIN 20 MG TAB PO SCH (21:38)
[2019-02-04] MEDS: PROMETHAZINE HCL 25 MG/ML 1ML IV PRN ×4 (03:55→16:00)
[2019-02-04] MEDS: HYDROmorphone HCL 2 MG/ML VL IV PRN ×5 (03:55→20:05)
[2019-02-04 05:42] VITALS: BP 127/68
[2019-02-04] MEDS: SUCRALFATE 1 GM/10 ML ORAL SUSP PO SCH ×4 (06:34→21:37)
--- NOTE | 2019-02-04 07:20 | NUR ---
Opening Shift Note Assumed care of patient, awake and alert. Patient is on 2 L NC with No S/S of distress/SOB. patient C/O pain in abdomen and back 7/10 and nausea. Pain and nausea due at 0750, will bring in medication as soon as available. patient informed and verbalized understanding. Bed is in lowest position, wheels are locked, side rails up x2, and call light is within reach. Instructed on POC and to call for assist PRN, will continue to monitor for changes Q1hr and PRN.
--- NOTE | 2019-02-04 07:55 | NUR ---
PAIN AND NAUSEA. PATIENT GIVEN PRN DILAUDID AND PHENERGAN. PATIENT EDUCATED ON SAFETY PRECAUTIONS AND FALL PREVENTIONS. INFORMED PATIENT TO CALL IN SHE NEEDS TO GO TO THE RESTROOM. PATIENT VERBALIZED UNDERSTANDING. WILL CONTINUE TO MONITOR Q1H AND PRN.
[2019-02-04 08:00] VITALS: BP 138/77
[2019-02-04] MEDS: SPIRONOLACTONE 25 MG TAB PO SCH (10:00)
[2019-02-04] MEDS: LISINOPRIL 5 MG TAB PO SCH (10:00)
[2019-02-04] MEDS: amLODIPine BESYLATE 5 MG TAB PO SCH (10:00)
[2019-02-04] MEDS: METOPROLOL TARTRATE 50 MG TAB PO SCH ×2 (10:00→22:00)
[2019-02-04] MEDS: FAMOTIDINE (10MG/ML) 2ML VL IV SCH ×2 (10:51→22:42)
[2019-02-04] MEDS: COLCHICINE 0.6 MG CAP PO SCH ×2 (10:51→22:42)
[2019-02-04] MEDS: PANTOPRAZOLE 40 MG TAB PO SCH ×2 (10:51→22:44)
[2019-02-04 12:00] VITALS: BP 139/75
[2019-02-04] MEDS: CEFEPIME 2 GM in SODIUM CHL 0.9% 50 ML IV SCH ×2 (12:00→22:42)
--- NOTE | 2019-02-04 14:00 | NUR ---
PATIENT UP TO RESTROOM PATIENT UP TO RESTROOM. PATIENT AMBULATING WITH STEADY SLOW GAIT. EDUCATED PATIENT TO CALL FOR ASSISTANCE WALKING TO RESTROOM. PATEINT VERBALIZED WILL TRY BUT SOMETIMES HAS TO GO DUE TO URGENCY. PATIENT EDUCATED ON SAFETY/ AND FALL PREVENTION. PATIENT VERBALIZED UNDERSTANDING AND STATED WILL CALL WHEN CAN WAIT. WILL CONTINUE TO MONITOR Q1H AND PRN.
--- NOTE | 2019-02-04 14:00 | NUR ---
Rounds Patient awake and alert. No S/S of distress/SOB. Will continue to monitor changes q1hr and PRN.
--- NOTE | 2019-02-04 16:05 | NUR ---
Rounds Patient awake and alert. No S/S of distress/SOB. patient C/O pain and nausea. Pt given ordered PRN Dilaudid and Phenergan. Will continue to monitor changes q1hr and PRN.
[2019-02-04 17:00] VITALS: BP 132/79
[2019-02-04] MEDS: AMITRIPTYLINE HCL 25 MG TAB PO SCH (18:00)
--- NOTE | 2019-02-04 18:45 | NUR ---
Dr Moy at bedside Dr. Moy at bedside. New orders received. orders carried out [facility].
[2019-02-04] MEDS ORDERED: METOCLOPRAMIDE HCL 5MG/ml INJ 2ml VIAL IV PRN (19:45)
[2019-02-04] MEDS: ONDANSETRON HCL 4 MG/2 ML VIAL IV PRN (21:38)
[2019-02-04 22:00] VITALS: BP 128/71
[2019-02-04] MEDS: ATORVASTATIN 20 MG TAB PO SCH (22:00)
[2019-02-05] MEDS: HYDROmorphone HCL 2 MG/ML VL IV PRN ×6 (00:05→21:43)
[2019-02-05 05:00] VITALS: BP 143/75
[2019-02-05] MEDS: ONDANSETRON HCL 4 MG/2 ML VIAL IV PRN ×5 (05:01→21:43)
[2019-02-05] MEDS: SUCRALFATE 1 GM/10 ML ORAL SUSP PO SCH ×4 (06:04→21:41)
[2019-02-05 08:00] VITALS: BP 127/74
[2019-02-05 08:27] VITALS: BP 127/74
[2019-02-05] MEDS: CEFEPIME 2 GM in SODIUM CHL 0.9% 50 ML IV SCH ×2 (09:55→21:41)
[2019-02-05] MEDS: COLCHICINE 0.6 MG CAP PO SCH ×2 (09:56→21:42)
[2019-02-05] MEDS: PANTOPRAZOLE 40 MG TAB PO SCH ×2 (09:56→21:43)
[2019-02-05] MEDS: FAMOTIDINE (10MG/ML) 2ML VL IV SCH ×2 (09:56→21:41)
[2019-02-05] MEDS: SPIRONOLACTONE 25 MG TAB PO SCH (09:56)
[2019-02-05] MEDS: LISINOPRIL 5 MG TAB PO SCH (09:57)
[2019-02-05] MEDS: amLODIPine BESYLATE 5 MG TAB PO SCH (09:57)
[2019-02-05] MEDS: METOPROLOL TARTRATE 50 MG TAB PO SCH ×2 (09:57→21:42)
--- NOTE | 2019-02-05 11:44 | NUR ---
Nutrition consult/Follow-up Notes Wt. 81 kg Pt. visit: Reports some nausea without vomiting at this time, but not associated with current diet. Tolerating full liquid diet fairly. PO 100% x 4 meals. Est. Needs (based on previous assessment) Based on CBW 76 [id number] kcal (23-25 kcal/kgBW), 76-83 gms pro (1.0-1.1 gms/kgBW). Will continue to monitor pertinent labs and reassess nutrient need prn Labs: Glu 110H, others pertinent WNL Skin: Galen 21 GI: BM x 1 PES: Altered nutrition related lab values r/t acute/chronic medical condition aeb hyperglycemia (ongoing) Plan of care: Monitor lab, weight trends, PO intake/tolerance, skin integrity. F/u mod 3-5 days. Recommendations: 1) Continue full liquid diet, CCHO as ordered and as tolerated. 2) When medically able, advance diet to CCHO for optimal BG management.
[2019-02-05 17:05] VITALS: BP 126/71
[2019-02-05] MEDS: AMITRIPTYLINE HCL 25 MG TAB PO SCH (18:11)
[2019-02-05] MEDS: ATORVASTATIN 20 MG TAB PO SCH (21:42)
[2019-02-05 22:00] VITALS: BP 120/71
[2019-02-06] VITALS (7 sets, daily range): BP systolic 102–136; BP diastolic 68–75
[2019-02-06] MEDS: HYDROmorphone HCL 2 MG/ML VL IV PRN ×5 (03:28→20:03)
[2019-02-06] MEDS: ONDANSETRON HCL 4 MG/2 ML VIAL IV PRN ×5 (03:28→20:04)
[2019-02-06] MEDS: SUCRALFATE 1 GM/10 ML ORAL SUSP PO SCH ×4 (06:01→22:31)
[2019-02-06] MEDS: CEFEPIME 2 GM in SODIUM CHL 0.9% 50 ML IV SCH ×2 (09:47→22:30)
[2019-02-06] MEDS: COLCHICINE 0.6 MG CAP PO SCH ×2 (09:48→22:31)
[2019-02-06] MEDS: PANTOPRAZOLE 40 MG TAB PO SCH ×2 (09:48→22:31)
[2019-02-06] MEDS: METOPROLOL TARTRATE 50 MG TAB PO SCH ×2 (09:48→22:00)
[2019-02-06] MEDS: SPIRONOLACTONE 25 MG TAB PO SCH (09:48)
[2019-02-06] MEDS: FAMOTIDINE (10MG/ML) 2ML VL IV SCH ×2 (09:48→22:30)
[2019-02-06] MEDS: LISINOPRIL 5 MG TAB PO SCH (09:48)
[2019-02-06] MEDS: amLODIPine BESYLATE 5 MG TAB PO SCH (09:48)
[2019-02-06] MEDS: AMITRIPTYLINE HCL 25 MG TAB PO SCH (17:32)
--- NOTE | 2019-02-06 19:00 | NUR ---
Opening Shift Note Assumed care of patient, awake and alert. Family on bedside. No S/S of distress/SOB or pain. Instructed on POC and to call for assist PRN, will continue to monitor for changes Q1hr and PRN.
[2019-02-06] MEDS: ATORVASTATIN 20 MG TAB PO SCH (22:00)
[2019-02-07] MEDS: ONDANSETRON HCL 4 MG/2 ML VIAL IV PRN ×6 (00:01→20:25)
[2019-02-07] MEDS: HYDROmorphone HCL 2 MG/ML VL IV PRN ×6 (00:01→20:25)
[2019-02-07 05:00] VITALS: BP 140/69
[2019-02-07] MEDS: SUCRALFATE 1 GM/10 ML ORAL SUSP PO SCH ×4 (06:46→22:23)
--- NOTE | 2019-02-07 07:32 | NUR ---
Opening Shift Note Assumed care of patient, awake and alert resting quietly in bed. Patient is on 2 L NC with no S/S of distress/SOB or pain. Bed is in lowest position, wheels are locked, side rails up X2, and call light is with reach. Instructed on POC and to call for assist PRN, will continue to monitor for changes Q1hr and PRN.
--- NOTE | 2019-02-07 08:15 | NUR ---
PAIN AND NAUSEA PATIENT C/O ABD PAIN AND NAUSEA. PRN ORDERED DILAUDID AND ZOFRAN GIVEN. WILL CONTINUE TO MONITOR Q1H AND PRN.
[2019-02-07 09:00] VITALS: BP 138/76
[2019-02-07] MEDS: METOPROLOL TARTRATE 50 MG TAB PO SCH ×2 (10:00→22:00)
[2019-02-07] MEDS: LISINOPRIL 5 MG TAB PO SCH (10:00)
[2019-02-07] MEDS: SPIRONOLACTONE 25 MG TAB PO SCH (10:00)
[2019-02-07] MEDS: amLODIPine BESYLATE 5 MG TAB PO SCH (10:00)
[2019-02-07] MEDS: CEFEPIME 2 GM in SODIUM CHL 0.9% 50 ML IV SCH ×2 (10:02→22:24)
[2019-02-07] MEDS: COLCHICINE 0.6 MG CAP PO SCH ×2 (10:02→22:23)
[2019-02-07] MEDS: FAMOTIDINE (10MG/ML) 2ML VL IV SCH ×2 (10:02→22:23)
[2019-02-07] MEDS: PANTOPRAZOLE 40 MG TAB PO SCH ×2 (10:02→22:23)
[2019-02-07 13:00] VITALS: BP 140/76
--- NOTE | 2019-02-07 13:05 | NUR ---
Rounds Patient awake and alert laying in bed comfortably. No S/S of distress/SOB at this time. Bed is in lowest position, wheels are locked, side rails up x2, and call light is within reach. Will continue to monitor q1h and prn.
[2019-02-07 17:00] VITALS: BP 132/79
[2019-02-07] MEDS: AMITRIPTYLINE HCL 25 MG TAB PO SCH (18:00)
--- NOTE | 2019-02-07 19:02 | NUR ---
Closing Note Patient awake and alert laying in bed comfortably. No S/S of distress/SOB at current time. Bed is in lowest position, wheels are locked, side rails up x2, and call light is within reach. Patient educated on fall prevention. Care endorsed to Kate CLARK RN.
--- NOTE | 2019-02-07 19:05 | NUR ---
Opening Shift Note Assumed care of patient, awake and alert. Pt complaining about Pain,Nausea and Vomit. Pain and nausea medication due in 1and 1/2 h Instructed on POC and to call for assist PRN, will continue to monitor for changes Q1hr and PRN.
[2019-02-07 22:00] VITALS: BP 153/88
[2019-02-07] MEDS: ATORVASTATIN 20 MG TAB PO SCH (22:00)
[2019-02-07] MEDS: METOCLOPRAMIDE HCL 10 MG TAB PO SCH (22:00)
[2019-02-07] MEDS: BENZTROPINE MESY 0.5 MG TAB PO SCH (22:23)
[2019-02-08] MEDS: ONDANSETRON HCL 4 MG/2 ML VIAL IV PRN ×6 (00:30→21:27)
[2019-02-08] MEDS: HYDROmorphone HCL 2 MG/ML VL IV PRN ×6 (00:31→21:28)
[2019-02-08] MEDS: SUCRALFATE 1 GM/10 ML ORAL SUSP PO SCH ×4 (07:00→21:35)
[2019-02-08] MEDS: METOCLOPRAMIDE HCL 10 MG TAB PO SCH ×4 (07:00→21:30)
[2019-02-08 07:12] LABS: INR 1.03 (0.9-1.15); Partial Thromboplastin Time 28.6 sec (23.64-32.05)
[2019-02-08] MEDS: COLCHICINE 0.6 MG CAP PO SCH ×2 (08:56→21:28)
[2019-02-08] MEDS: METOPROLOL TARTRATE 50 MG TAB PO SCH ×3 (08:56→22:29)
[2019-02-08] MEDS: amLODIPine BESYLATE 5 MG TAB PO SCH (08:56)
[2019-02-08] MEDS: BENZTROPINE MESY 0.5 MG TAB PO SCH ×2 (08:56→21:30)
[2019-02-08] MEDS: PANTOPRAZOLE 40 MG TAB PO SCH ×2 (08:57→21:29)
[2019-02-08] MEDS: LISINOPRIL 5 MG TAB PO SCH (08:57)
[2019-02-08 09:00] VITALS: BP 143/78
[2019-02-08] MEDS: CEFEPIME 2 GM in SODIUM CHL 0.9% 50 ML IV SCH ×2 (10:00→21:23)
[2019-02-08] MEDS: SPIRONOLACTONE 25 MG TAB PO SCH (10:00)
[2019-02-08] MEDS: FAMOTIDINE (10MG/ML) 2ML VL IV SCH ×2 (10:00→21:35)
[2019-02-08] MEDS ORDERED: NALOXONE HCL 0.4 MG/ML VIAL ONE (10:21)
[2019-02-08] MEDS ORDERED: FLUMAZENIL 0.1 MG/ML INJ 10ML MDV IV ONE (10:21)
[2019-02-08] MEDS ORDERED: SODIUM CHLORIDE LOCK 10 ML ONE (10:21)
[2019-02-08] MEDS ORDERED: LIDOCAINE VISCOUS 2% 15ML UD ONE (10:21)
[2019-02-08] MEDS ORDERED: diphenhdrAMINE HCL 50 MG/1 ML VL ONE (10:22)
[2019-02-08] MEDS: MIDAZOLAM HCL 5 MG/ML-1ML VIAL ONE ×2 (12:16→12:19)
[2019-02-08] MEDS: fentaNYL CITRATE 100 MCG/2 ML VL ONE ×2 (12:16→12:19)
[2019-02-08 12:25] VITALS: BP 126/70
[2019-02-08 13:44] LABS: Basophils # (auto) 0 uL; Basophils % (auto) 0.8 % (0.0-2.0); Eosinophils # (auto) 0.2 uL; Eosinophils % (auto) 5.3 % (0.0-7.0); Hematocrit 36.9 % (36.0-46.0); Hemoglobin 12.2 g/dL (12.2-16.2); Lymphocytes # (auto) 1.1 uL; Mean Corpuscular Hemoglobin 28.1 pg (28.0-32.0); Mean Corpuscular Hgb Conc. 33.1 g/dL (32.0-36.0); Mean Corpuscular Volume 84.8 fL (80.0-100.0); Monocytes # (auto) 0.3 uL; Monocytes % (auto) 9.3 % (0.0-12.0); Neutrophils # (auto) 1.5 uL; Neutrophils % (auto) 49.6 % (37.0-80.0); Nucleated Red Blood Cells % 0.1 %; Platelet Count (auto) 93 10^3/uL (140-450); Red Blood Cells 4.35 10^6/uL (4.0-5.20); Red Cell Distribution Width 14.5 % (11.8-14.3)
[2019-02-08 17:00] VITALS: BP 158/91
[2019-02-08] MEDS: AMITRIPTYLINE HCL 25 MG TAB PO SCH (17:43)
[2019-02-08] MEDS: ATORVASTATIN 20 MG TAB PO SCH (21:29)
--- NOTE | 2019-02-08 22:00 | NUR ---
MIDLINE DRESSING CHANGE. FLUSHED WITH NS AND CHANGE PORT.
[2019-02-08 23:54] VITALS: BP 130/77
[2019-02-09] MEDS: ONDANSETRON HCL 4 MG/2 ML VIAL IV PRN ×5 (01:19→21:27)
[2019-02-09] MEDS: HYDROmorphone HCL 2 MG/ML VL IV PRN ×5 (01:19→21:34)
[2019-02-09] MEDS: SUCRALFATE 1 GM/10 ML ORAL SUSP PO SCH ×4 (05:05→21:26)
[2019-02-09] MEDS: METOCLOPRAMIDE HCL 10 MG TAB PO SCH ×4 (05:05→22:00)
[2019-02-09 05:51] VITALS: BP 125/79
[2019-02-09 09:00] VITALS: BP_SYST 100; BP_SYST 118; BP_DIAS 60; BP_DIAS 66
[2019-02-09] MEDS: CEFEPIME 2 GM in SODIUM CHL 0.9% 50 ML IV SCH ×2 (09:11→21:37)
[2019-02-09] MEDS: FAMOTIDINE (10MG/ML) 2ML VL IV SCH ×2 (09:11→21:30)
[2019-02-09] MEDS: COLCHICINE 0.6 MG CAP PO SCH ×2 (09:12→21:29)
[2019-02-09] MEDS: SPIRONOLACTONE 25 MG TAB PO SCH (09:12)
[2019-02-09] MEDS: BENZTROPINE MESY 0.5 MG TAB PO SCH ×2 (09:12→21:29)
[2019-02-09] MEDS: METOPROLOL TARTRATE 50 MG TAB PO SCH ×2 (09:12→22:00)
[2019-02-09] MEDS: amLODIPine BESYLATE 5 MG TAB PO SCH (09:24)
[2019-02-09] MEDS: PANTOPRAZOLE 40 MG TAB PO SCH ×2 (09:25→21:26)
[2019-02-09] MEDS: LISINOPRIL 5 MG TAB PO SCH (09:25)
[2019-02-09 13:00] VITALS: BP 117/75
[2019-02-09 17:00] VITALS: BP_SYST 127; BP_DIAS 70; BP_DIAS 73
[2019-02-09] MEDS: AMITRIPTYLINE HCL 25 MG TAB PO SCH (18:00)
[2019-02-09] MEDS: ATORVASTATIN 20 MG TAB PO SCH (21:29)
[2019-02-09 22:00] VITALS: BP 124/73
[2019-02-10] MEDS: HYDROmorphone HCL 2 MG/ML VL IV PRN ×6 (01:50→21:40)
[2019-02-10] MEDS: ONDANSETRON HCL 4 MG/2 ML VIAL IV PRN ×6 (01:51→21:38)
[2019-02-10] MEDS: METOCLOPRAMIDE HCL 10 MG TAB PO SCH ×4 (03:41→21:39)
[2019-02-10 05:05] VITALS: BP 114/73
[2019-02-10] MEDS: SUCRALFATE 1 GM/10 ML ORAL SUSP PO SCH ×4 (05:49→21:38)
--- NOTE | 2019-02-10 07:25 | NUR ---
Opening Shift Note Assumed care of patient, awake and alert X4. No S/S of distress/SOB. Abdominal pain of 8/10, will medicate per MD orders. Updated on POC and instructed to call for assistance as needed, pt. verbalized understanding. Bed locked in lowest position, side rails up x 2, call light within reach. Will continue to monitor for changes Q1hr and PRN.
[2019-02-10 09:00] VITALS: BP 115/69
[2019-02-10] MEDS: amLODIPine BESYLATE 5 MG TAB PO SCH (10:00)
[2019-02-10] MEDS: METOPROLOL TARTRATE 50 MG TAB PO SCH ×2 (10:00→22:00)
[2019-02-10] MEDS: LISINOPRIL 5 MG TAB PO SCH (10:00)
[2019-02-10] MEDS: BENZTROPINE MESY 0.5 MG TAB PO SCH ×3 (10:00→21:39)
[2019-02-10] MEDS: SPIRONOLACTONE 25 MG TAB PO SCH (10:00)
[2019-02-10] MEDS: FAMOTIDINE (10MG/ML) 2ML VL IV SCH ×2 (10:02→21:38)
[2019-02-10] MEDS: CEFEPIME 2 GM in SODIUM CHL 0.9% 50 ML IV SCH ×2 (10:03→21:38)
[2019-02-10] MEDS: PANTOPRAZOLE 40 MG TAB PO SCH ×2 (10:06→21:39)
[2019-02-10] MEDS: COLCHICINE 0.6 MG CAP PO SCH ×2 (10:07→21:39)
--- NOTE | 2019-02-10 10:39 | NUR ---
Nutrition Follow-up Notes Wt.: 79.0 kg Pt`s sleeping with no family by beside. per records pt with hematoma and groin pain. per records pt with possible gastroparesis. per records pt vomiting has decreased now. pt with no distress noted per nursing. pt is currently on full liq diet with inadequate PO of 50% x 4 per RN dOc. Est. Needs BW 76 [id number] kcal (23-25 kcal/kgBW), 76-83 gms pro (1.0-1.1 gms/kgBW). Will continue to monitor pertinent labs and reassess nutrient need prn Labs: no new labs today 01/30: GLU 110 H, rest lab wnl Skin: Galen scale 18, mod risk no wounds per RN doc GI: Pt had 1 BM 01/31 per treasury assistant. PES: Altered nutrition related lab values r/t acute/chronic medical condition aeb hyperglycemia Will continue to monitor PO intake, skin status, pertinent labs and weight trend. F/u in 3-5 days. Rec.: 1.) Advance diet as medically feasible. 2) continue current plan of care
[2019-02-10 13:00] VITALS: BP 96/60
[2019-02-10 17:00] VITALS: BP 136/75
--- NOTE | 2019-02-10 17:35 | NUR ---
assessment Patient has no post discharge needs at this time. Addendum: 02/11/19 at 1735 by Adele SUTTON Amended: Links added.
[2019-02-10] MEDS: AMITRIPTYLINE HCL 25 MG TAB PO SCH (17:52)
[2019-02-10 21:39] VITALS: BP 132/62
[2019-02-10] MEDS: ATORVASTATIN 20 MG TAB PO SCH (21:39)
--- NOTE | 2019-02-10 22:20 | NUR ---
PAIN/NAUSEA PATIENT C/O ABDOMINAL PAIN 8/10 AND NAUSEA REQUESTING MEDICATION. ADMINISTERED DILAUDID 1MG IV AND ZOFRAN 8MG IV PRESCRIBED. KEPT PATIENT HOB ABOVE 45 DEGREES AND APPLIED HEATING COMPRESSES TO LOWER ABDOMEN. WILL CONTINUE TO MONTIOR PATIENT.
[2019-02-11] MEDS: ONDANSETRON HCL 4 MG/2 ML VIAL IV PRN ×6 (02:09→22:27)
[2019-02-11] MEDS: HYDROmorphone HCL 2 MG/ML VL IV PRN ×6 (02:15→22:34)
[2019-02-11 05:00] VITALS: BP 101/56
[2019-02-11] MEDS: SUCRALFATE 1 GM/10 ML ORAL SUSP PO SCH ×4 (06:15→22:23)
[2019-02-11] MEDS: METOCLOPRAMIDE HCL 10 MG TAB PO SCH ×3 (06:16→12:16)
--- NOTE | 2019-02-11 07:25 | NUR ---
Open Shift Note Received report on patient, awake and sitting up in bed. Patient shows no signs of distress at this time but still states having chronic pain along with nausea. Discussed POC with patient and pain management techniques. Patient verbalized understanding. Bed in lowest locked position, side rails up x2 and call light within reach. Will continue to monitor.
[2019-02-11 09:00] VITALS: BP 122/66
[2019-02-11] MEDS: SPIRONOLACTONE 25 MG TAB PO SCH (10:00)
[2019-02-11] MEDS: CEFEPIME 2 GM in SODIUM CHL 0.9% 50 ML IV SCH ×2 (10:22→22:23)
[2019-02-11] MEDS: PANTOPRAZOLE 40 MG TAB PO SCH ×2 (10:30→22:25)
[2019-02-11] MEDS: METOPROLOL TARTRATE 50 MG TAB PO SCH ×2 (10:31→22:00)
[2019-02-11] MEDS: LISINOPRIL 5 MG TAB PO SCH (10:31)
[2019-02-11] MEDS: COLCHICINE 0.6 MG CAP PO SCH ×2 (10:32→22:24)
[2019-02-11] MEDS: amLODIPine BESYLATE 5 MG TAB PO SCH (10:32)
[2019-02-11] MEDS: BENZTROPINE MESY 0.5 MG TAB PO SCH (10:32)
[2019-02-11] MEDS: FAMOTIDINE (10MG/ML) 2ML VL IV SCH ×2 (12:35→22:25)
[2019-02-11 13:00] VITALS: BP 115/73
[2019-02-11 17:38] VITALS: BP 118/68
[2019-02-11] MEDS: AMITRIPTYLINE HCL 25 MG TAB PO SCH (18:51)
--- NOTE | 2019-02-11 18:55 | NUR ---
End of Shift Endorsed care to NOC nurse. Patient states having abdominal pain, given PRN pain medication. Patient shows no other signs of distress at this time. Bed in lowest locked position, side rails up x2 and call light within reach.
[2019-02-11 22:05] VITALS: BP 104/65
[2019-02-11] MEDS: ATORVASTATIN 20 MG TAB PO SCH (22:24)
[2019-02-11] MEDS: METOCLOPRAMIDE HCL 5MG/ml INJ 2ml VIAL IV SCH (22:27)
[2019-02-12] MEDS: ONDANSETRON HCL 4 MG/2 ML VIAL IV PRN ×5 (03:48→23:51)
[2019-02-12] MEDS: HYDROmorphone HCL 2 MG/ML VL IV PRN ×3 (03:49→12:34)
[2019-02-12 05:00] VITALS: BP 130/70
[2019-02-12] MEDS: METOCLOPRAMIDE HCL 5MG/ml INJ 2ml VIAL IV SCH ×2 (06:00→21:32)
--- NOTE | 2019-02-12 06:51 | NUR ---
PATIENT SAYS SHE FEELS CONSTIPATED AND HAS BEEN HAVING A BM EVERY OTHER DAY. PATIENT REQUESTING LACTULOSE SHE SAYS SHE HAS HAD THAT IN THE PAST AND TOLERATED IT. PAGED DR JUAREZ AWAITING CALL BACK FOR ORDERS. Addendum: 02/12/19 at 0714 by AC CHICAS RN RN DR JUAREZ CALLED BACK RECEIVED ORDER FOR LACTULOSE 60ML PO BID JHOANNHamida LOPEZ.
[2019-02-12] MEDS: SUCRALFATE 1 GM/10 ML ORAL SUSP PO SCH ×4 (07:02→21:32)
[2019-02-12] MEDS ORDERED: LACTULOSE 20Gm/30ML SOLN PO ONE (07:15)
--- NOTE | 2019-02-12 07:20 | NUR ---
Open Shift Note Received report on patient, awake and sitting up in bed. Patient moaning stating she had abdominal pain 8/10 and that she knows her PRN pain medication is "due soon". Discussed pain management regimen with patient along with POC. Patient verbalized understanding. Bed in lowest locked position, side rails up x2 and call light within reach. Will continue to monitor.
[2019-02-12] MEDS ORDERED: LACTULOSE 20Gm/30ML SOLN PO PRN (08:00)
[2019-02-12] MEDS ORDERED: METOCLOPRAMIDE HCL 5MG/ml INJ 2ml VIAL IV ONE ×2 (08:15→11:15)
[2019-02-12 09:00] VITALS: BP 104/52
[2019-02-12] MEDS: CEFEPIME 2 GM in SODIUM CHL 0.9% 50 ML IV SCH (09:51)
[2019-02-12] MEDS: PANTOPRAZOLE 40 MG TAB PO SCH ×2 (09:53→21:32)
[2019-02-12] MEDS: FAMOTIDINE (10MG/ML) 2ML VL IV SCH ×2 (09:53→21:32)
[2019-02-12] MEDS: BENZTROPINE MESY 0.5 MG TAB PO SCH ×2 (09:54→21:32)
[2019-02-12] MEDS: METOPROLOL TARTRATE 50 MG TAB PO SCH ×2 (09:54→22:25)
[2019-02-12] MEDS: COLCHICINE 0.6 MG CAP PO SCH (09:54)
[2019-02-12] MEDS: SPIRONOLACTONE 25 MG TAB PO SCH (09:55)
[2019-02-12] MEDS: amLODIPine BESYLATE 5 MG TAB PO SCH (09:55)
[2019-02-12] MEDS: LISINOPRIL 5 MG TAB PO SCH (09:56)
[2019-02-12 13:00] VITALS: BP 145/75
[2019-02-12] MEDS: HYDROcodone-ACET 10/325MG TAB PO PRN (14:47)
[2019-02-12 17:01] VITALS: BP 126/96
--- NOTE | 2019-02-12 17:17 | NUR ---
Paged Dr Moy Paged Dr Moy to inform him that patient stated [place] was "not doing anything" for her. New order received for Oxycodone 30mg PO TID. Order read back and verified.
[2019-02-12] MEDS ORDERED: OXYCODONE HCL 5MG TAB PO PRN (17:45)
[2019-02-12] MEDS: oxyCODONE ER 10 MG TAB PO SCH ×2 (18:19→22:24)
--- NOTE | 2019-02-12 18:30 | NUR ---
Patient Ate Without Vomiting Patient ate all of dinner without vomiting.
--- NOTE | 2019-02-12 18:47 | NUR ---
Closing Note Patient sitting up in bed, shows no signs of distress at this time. Bed in lowest locked position, side rails up x2 and call light within reach.
[2019-02-12] MEDS: AMITRIPTYLINE HCL 25 MG TAB PO SCH (19:09)
[2019-02-12] MEDS: ATORVASTATIN 20 MG TAB PO SCH (21:33)
[2019-02-12 22:00] VITALS: BP 159/85
[2019-02-13] MEDS: ONDANSETRON HCL 4 MG/2 ML VIAL IV PRN (05:16)
[2019-02-13 05:49] VITALS: BP 121/64
[2019-02-13] MEDS: oxyCODONE ER 10 MG TAB PO SCH ×2 (06:01→14:13)
[2019-02-13] MEDS: METOCLOPRAMIDE HCL 5MG/ml INJ 2ml VIAL IV SCH (06:01)
[2019-02-13] MEDS: SUCRALFATE 1 GM/10 ML ORAL SUSP PO SCH ×3 (06:01→17:00)
--- NOTE | 2019-02-13 07:30 | NUR ---
Opening Shift Note Assuming care of patient at this time. Patient is resting with eyes closed. Patient does not appear to be in any pain. Patient shows no signs or symptoms of distress at this time. Respirations are even and unlabored. Bed is locked and lowered with side rails up x2. Will instruct patient on the plan of care for today and to call for assistance once patient is awake and alert. Call light within reach. Will continue to round hourly and as needed.
[2019-02-13 09:00] VITALS: BP 112/63
[2019-02-13] MEDS: BENZTROPINE MESY 0.5 MG TAB PO SCH (09:44)
[2019-02-13] MEDS: SPIRONOLACTONE 25 MG TAB PO SCH (09:44)
[2019-02-13] MEDS: METOPROLOL TARTRATE 50 MG TAB PO SCH (09:45)
[2019-02-13] MEDS: LISINOPRIL 5 MG TAB PO SCH (09:45)
[2019-02-13] MEDS: PANTOPRAZOLE 40 MG TAB PO SCH (09:45)
[2019-02-13] MEDS: amLODIPine BESYLATE 5 MG TAB PO SCH (09:46)
[2019-02-13] MEDS: FAMOTIDINE (10MG/ML) 2ML VL IV SCH (09:46)
[2019-02-13] MEDS: HYDROcodone-ACET 10/325MG TAB PO PRN (09:53)
[2019-02-13] MEDS ORDERED: HYOSCYAMINE SULF 0.125 MG ODT TAB PO PRN (10:45)
--- NOTE | 2019-02-13 11:11 | NUR ---
Nutrition Follow-up Notes Wt.: 80.1 kg Pt. noted with episode of N/V yesterday 02/12. Documented PO intake 25-50% x 3 days, which has decreased since previous assessment. Fair tolerance to soft diet with no reports of difficulty chewing or swallowing with current texture. Est. Needs BW 76 [id number] kcal (23-25 kcal/kgBW), 76-83 gms pro (1.0-1.1 gms/kgBW). Will continue to monitor pertinent labs and reassess nutrient need prn Labs: no new labs today 01/30: GLU 110 H, rest lab wnl Skin: Galen scale 17, mod risk no wounds per RN doc GI: Pt had 1 BM 02/13 per clinical documentation manager. PES: Altered nutrition related lab values r/t acute/chronic medical condition aeb hyperglycemia (ongoing) Will continue to monitor PO intake, skin status, pertinent labs and weight trend. F/u in 3-5 days. Rec.: 1.) Advance diet as medically feasible. If PO intake continues <75% estimated needs, consider adding supplementation for poor PO intake 2) continue current plan of care
--- NOTE | 2019-02-13 11:23 | NUR ---
GI Clearance Dr. Napoles at bedside. No orders to be put in. Patient is cleared from a GI standpoint.
[2019-02-13 13:00] VITALS: BP 127/69
[2019-02-13] MEDS ORDERED: METOCLOPRAMIDE HCL 10 MG TAB PO SCH (14:00)
[2019-02-13 17:19] VITALS: BP 127/69
[2019-02-13] MEDS: AMITRIPTYLINE HCL 25 MG TAB PO SCH (18:00)
--- NOTE | 2019-02-13 18:34 | NUR ---
Discharge Discharge instructions given as ordered. Encourage to follow up with PMD as instructed. All questions and concerns addressed. Patient verbalized understanding. Medication reconciliation form completed and copy given to patient. IV removed with catheter intact, pressure dressing applied. Telemetry unit returned to ICU. Patient taken to vehicle via wheelchair with all personal belongings, accompanied by staff and family member. No distress noted at time of departure.
== END 2019-02-13 18:31 | disposition home or self-care (01) | DRG 304 ==
LOC: ER 18:24 → TELE 18:25 → TELE-WESTW 01-27 10:16
PROVIDERS: ADMIT Nurse Practitioner Acute Care; ATTEND Internal Medicine Cardiovascular Disease
PROC: 0DB78ZX Excision of Stomach, Pylorus, Via Natural or Artificial Opening Endoscopic, Diagnostic (ICD-10-PCS; principal; 2019-02-08 12:05)
DX: I16.0 Hypertensive urgency (principal); I50.43 Acute on chronic combined systolic (congestive) and diastolic (congestive) heart failure; I16.9 Hypertensive crisis, unspecified; I82.409 Acute embolism and thrombosis of unspecified deep veins of unspecified lower extremity; S42.202A Unspecified fracture of upper end of left humerus, initial encounter for closed fracture; K31.84 Gastroparesis; I11.0 Hypertensive heart disease with heart failure; K44.9 Diaphragmatic hernia without obstruction or gangrene; E87.6 Hypokalemia; E66.9 Obesity, unspecified; J44.9 Chronic obstructive pulmonary disease, unspecified; I73.9 Peripheral vascular disease, unspecified; I35.1 Nonrheumatic aortic (valve) insufficiency; M40.204 Unspecified kyphosis, thoracic region; F17.210 Nicotine dependence, cigarettes, uncomplicated; X58.XXXA Exposure to other specified factors, initial encounter; G89.4 Chronic pain syndrome; M81.0 Age-related osteoporosis without current pathological fracture; Z79.02 Long term (current) use of antithrombotics/antiplatelets; Z79.82 Long term (current) use of aspirin; Z79.899 Other long term (current) drug therapy; Z80.1 Family history of malignant neoplasm of trachea, bronchus and lung; Z82.49 Family history of ischemic heart disease and other diseases of the circulatory system; Z86.73 Personal history of transient ischemic attack (TIA), and cerebral infarction without residual deficits; Z88.8 Allergy status to other drugs, medicaments and biological substances; Z88.6 Allergy status to analgesic agent; Z90.49 Acquired absence of other specified parts of digestive tract; Z90.710 Acquired absence of both cervix and uterus; Z91.19 Patient's noncompliance with other medical treatment and regimen; Z88.1 Allergy status to other antibiotic agents; Z88.5 Allergy status to narcotic agent; Y93.89 Activity, other specified; Y92.89 Other specified places as the place of occurrence of the external cause; Y99.8 Other external cause status; Z68.30 Body mass index [BMI] 30.0-30.9, adult
CPT/HCPCS: 36415; 43239; 70450; 71045; 71046; 72131; 73030; 73200; 74176; 74177; 80048; 80053; 81001; 83605; 83735; 83880; 84484; 85025; 85610; 85730; 87040; 87086; 96365; 96375; G0378; J2001; J2250; J2405; J3490

== ENCOUNTER 2019-06-04 13:09 | Emergency (ER) | payer OTHER, MEDICAID ==
[~2019-06-04] VITALS: Ht 162.6 cm; Wt 81.6 kg
[~2019-06-04 13:09] MED LIST changes: +ALEN1TAB32; +AMIT-238; +ASP81EC; +ATOR40TA52; +CARV25TA55; +CHOL20002; +CLON0.2T; -CLOP75TA41 PO; +DILT30TA24; +DOCU100C8; +ENOX80IN8; +FERR-7; +FUR20T; +IPR002IS; +LID35TP; +PANT40T; +[UNRECOGNIZED DRUG - CODE]; +ondansetron
[2019-06-04 13:40] LABS: Basophils # (auto) 0 uL; Basophils % (auto) 0.5 % (0.0-2.0); Eosinophils # (auto) 0 uL; Eosinophils % (auto) 0.4 % (0.0-7.0); Hematocrit 40.6 % (36.0-46.0); Hemoglobin 13.6 g/dL (12.2-16.2); Lymphocytes # (auto) 1.5 uL; Lymphocytes % (auto) 26.6 % (10.0-50.0); Mean Corpuscular Hemoglobin 29.6 pg (28.0-32.0); Mean Corpuscular Hgb Conc. 33.5 g/dL (32.0-36.0); Mean Corpuscular Volume 88.3 fL (80.0-100.0); Monocytes # (auto) 0.3 uL; Monocytes % (auto) 5.7 % (0.0-12.0); Neutrophils # (auto) 3.7 uL; Neutrophils % (auto) 66.8 % (37.0-80.0); Nucleated Red Blood Cells % 0.1 %; Platelet Count (auto) 170 10^3/uL (140-450); Red Cell Distribution Width 15.5 % (11.8-14.3); White Blood Cell 5.6 10^3/uL (4.4-10.8)
[2019-06-04 13:57] LABS: Albumin 3.8 g/dL (3.4-5.0); Anion Gap 8 (5-15); Blood Urea Nitrogen 14 mg/dL (7-18); Calcium 8.8 mg/dL (8.5-10.1); Carbon Dioxide 24 mmol/L (21-32); Chloride 108 mmol/L (98-107); Glucose 127 mg/dL (74-106); Potassium 3.8 mmol/L (3.5-5.1); Sodium 140 mmol/L (136-145)
[2019-06-04] MEDS ORDERED: ONDANSETRON HCL 4 MG/2 ML VIAL IV ONE ×2 (14:00→19:00)
[2019-06-04] MEDS ORDERED: HYDROmorphone HCL 2 MG/ML VL IV ONE ×2 (14:00→19:00)
[2019-06-04 14:03] LABS: Alanine Aminotransferase 24 U/L (13-56); Alkaline Phosphatase 82 U/L (45-117); Aspartate Aminotransferase 15 U/L (15-37); BUN/Creatinine Ratio 15.6; Bilirubin, Total 0.7 mg/dL (0.2-1.0); GFR African American 83 mL/min; GFR Non-African American 68 mL/min; Total Protein 8.3 g/dL (6.4-8.2)
[2019-06-04 15:15] LABS: INR 1.04 (0.9-1.15); Partial Thromboplastin Time 30.2 sec (23.64-32.05)
[2019-06-04] MEDS ORDERED: ENOXAPARIN SOD 80 MG/0.8ML SYRINGE SC ONE (18:45)
[2019-06-04 21:15] VITALS: BP 165/84
[2019-06-04] MEDS ORDERED: LORazepam 0.5 MG TAB PO PRN (22:45)
[2019-06-04] MEDS ORDERED: DOCUSATE SOD 100 MG CAP PO PRN (22:45)
[2019-06-04] MEDS ORDERED: ONDANSETRON HCL 4 MG/2 ML VIAL IV PRN (22:45)
[2019-06-04] MEDS ORDERED: HYDROcodone-ACET 5/325MG TAB PO PRN (22:45)
[2019-06-04] MEDS ORDERED: ACETAMINOPHEN 325 MG TAB PO PRN (22:45)
[2019-06-05] MEDS ORDERED: SODIUM CHLORIDE 0.9% 1,000 ML IV SCH
[2019-06-05] MEDS ORDERED: PANTOPRAZOLE 40 MG TAB PO SCH (06:00)
[2019-06-05] MEDS ORDERED: LISINOPRIL 5 MG TAB PO SCH (10:00)
[2019-06-05] MEDS ORDERED: ASPirin-EC 81 mg tab PO SCH (10:00)
[2019-06-05] MEDS ORDERED: amLODIPine BESYLATE 5 MG TAB PO SCH (10:00)
[2019-06-05] MEDS ORDERED: SPIRONOLACTONE 25 MG TAB PO SCH (10:00)
[2019-06-05] MEDS ORDERED: FUROSEMIDE 20 MG TAB PO SCH (10:00)
[2019-06-05] MEDS ORDERED: AMITRIPTYLINE HCL 25 MG TAB PO SCH (18:00)
== END 2019-06-04 23:03 | disposition home or self-care (01) ==
LOC: ER 13:09
DX: S36.892A Contusion of other intra-abdominal organs, initial encounter (principal); I11.0 Hypertensive heart disease with heart failure; I50.9 Heart failure, unspecified; J44.9 Chronic obstructive pulmonary disease, unspecified; Z90.49 Acquired absence of other specified parts of digestive tract; Z90.710 Acquired absence of both cervix and uterus; Z95.0 Presence of cardiac pacemaker; Z87.891 Personal history of nicotine dependence; Z86.73 Personal history of transient ischemic attack (TIA), and cerebral infarction without residual deficits; Z88.1 Allergy status to other antibiotic agents; Z88.6 Allergy status to analgesic agent; Z88.8 Allergy status to other drugs, medicaments and biological substances; Z79.899 Other long term (current) drug therapy; X58.XXXA Exposure to other specified factors, initial encounter; Y93.89 Activity, other specified; Y92.89 Other specified places as the place of occurrence of the external cause; Y99.8 Other external cause status
CPT/HCPCS: 36415; 71046; 74176; 80053; 83690; 84484; 85025; 85379; 85610; 85730; 93005; 96372; 96374; 96375; 96376; 99284; J1170; J1650; J2405